=== PATIENT | male | born 1995 | race African-American/Black ===

== ENCOUNTER 2023-07-01 23:41 | Emergency (ER) | payer SELFPAY ==
[2023-07-02] MEDS ORDERED: Albuterol/Ipratropium 3.0-0.5 MG/3 ML Neb Soln NEB ONE (00:16)
[2023-07-02 01:20] LABS: CORONAVIRUS COVID-19 NAA POSITIVE (NEGATIVE); INFLUENZA A NAA NEGATIVE (NEGATIVE); INFLUENZA B NAA NEGATIVE (NEGATIVE)
== END 2023-07-02 02:05 | disposition home or self-care (01) ==
LOC: MW.ED 23:41
DX: U07.1 COVID-19 (principal); J45.901 Unspecified asthma with (acute) exacerbation; Z79.899 Other long term (current) drug therapy; Z88.8 Allergy status to other drugs, medicaments and biological substances
CPT/HCPCS: 0240U; 94640; 99285; 99283; J7620-GY